=== PATIENT | male | born 1990 | race Caucasian/White ===

== ENCOUNTER 2020-12-13 23:16 | Emergency (ER) | payer SELFPAY ==
[2020-12-13 23:33] VITALS: TEMP 98; BMI 29.1
[2020-12-14 04:17] LABS: EOS % 2.2 % (0-4.5); HEMATOCRIT 44.5 % (35.4-49); HEMOGLOBIN 15.1 GM/dL (11.7-16.9); LYMPH % 47.1 % (8-40); MCH 31.5 pg (25.7-33.7); MEAN CELL VOLUME 92.5 fl (80-96); MEAN PLT VOLUME 7.4 fl (7.5-11.1); MONO % 4.9 % (3.8-10.2); NEUT % 44.8 % (42.8-82.8); PLATELET COUNT 316 K/MM3 (134-434); RBC 4.81 M/mm3 (4.00-5.60); WHITE BLOOD COUNT 6.1 K/mm3 (4.0-10.0)
[2020-12-14 04:31] LABS: POTASSIUM 4.3 mmol/L (3.5-5.1)
[2020-12-14 04:32] LABS: CALCIUM 8.6 mg/dL (8.5-10.1)
[2020-12-14 04:34] LABS: ALBUMIN 3.8 g/dl (3.4-5.0); BLOOD UREA NITROGEN 7.3 mg/dL (7-18)
[2020-12-14 04:36] LABS: CREATININE 0.9 mg/dL (0.55-1.3)
[2020-12-14 04:37] LABS: BILIRUBIN,TOTAL 0.5 mg/dL (0.2-1); TOT PROT 8.2 g/dl (6.4-8.2)
[2020-12-14 07:56] VITALS: BP 121/71; PULSE 93
== END 2020-12-14 07:57 | disposition home or self-care (01) ==
LOC: JER 23:16
DX: F10.10 Alcohol abuse, uncomplicated (principal)
CPT/HCPCS: 36415; 80053; 85025; 99283-25

== ENCOUNTER 2021-04-12 12:05 | Emergency (ER) | payer OTHER ==
[2021-04-12] MEDS ORDERED: DIPHTH,PERTUSS(ACELL),TET 0.5 ML DISP.SYRIN IM ONE ×2 (12:23→13:54)
[2021-04-12 12:30] VITALS: TEMP 97.5; BMI 25.0
[2021-04-12 13:50] LABS: BASO % 1.3 % (0-2.0); EOS % 1.6 % (0-4.5); HEMATOCRIT 42.1 % (35.4-49); HEMOGLOBIN 14.3 GM/dL (11.7-16.9); MCH 33.7 pg (25.7-33.7); MCHC 33.9 g/dl (32.0-35.9); MEAN CELL VOLUME 99.5 fl (80-96); MEAN PLT VOLUME 7.5 fl (7.5-11.1); MONO % 5.1 % (3.8-10.2); PLATELET COUNT 176 10^3/uL (134-434); RBC 4.23 M/mm3 (4.00-5.60); RDW 14.2 % (11.9-15.9); WHITE BLOOD COUNT 4.5 K/mm3 (4.0-10.0)
[2021-04-12 14:22] LABS: CHLORIDE 108 mmol/L (98-107); SODIUM 145 mmol/L (136-145)
[2021-04-12 14:25] LABS: ALBUMIN 3.5 g/dl (3.4-5.0); ANION GAP 10 MMOL/L (8-16); BLOOD UREA NITROGEN 3.7 mg/dL (7-18); CALCIUM 7.8 mg/dL (8.5-10.1); CO2 28 mmol/L (21-32); GLUCOSE,RANDOM 100 mg/dL (74-106)
[2021-04-12 14:28] LABS: CREATININE 0.7 mg/dL (0.55-1.3); SGOT/AST 195 U/L (15-37); SGPT/ALT 94 U/L (13-61)
[2021-04-12 14:30] LABS: TOT PROT 7.8 g/dl (6.4-8.2)
[2021-04-12 14:31] LABS: ALK PHOS 113 U/L (45-117)
[2021-04-12 14:38] LABS: BILIRUBIN,TOTAL 0.5 mg/dL (0.2-1)
[2021-04-12 14:58] LABS: URINE APPEARANCE CLEAR; URINE BILIRUBIN NEGATIVE (NEGATIVE); URINE COLOR YELLOW; URINE GLUCOSE (UA) NEGATIVE (NEGATIVE); URINE KETONE NEGATIVE (NEGATIVE); URINE LEUK ESTERASE NEGATIVE (NEGATIVE); URINE NITRITE NEGATIVE (NEGATIVE); URINE PROTEIN NEGATIVE (NEGATIVE); URINE UROBILINOGEN 0.2 mg/dL (0.2-1.0)
[2021-04-12 15:21] LABS: METHADONE, UR NEGATIVE (NEGATIVE)
[2021-04-12 15:22] LABS: OPIATES, URI NEGATIVE (NEGATIVE); PHENCYCLIDINE,URINE NEGATIVE (NEGATIVE); URINE BARBITURATES NEGATIVE (NEGATIVE)
[2021-04-12 15:23] LABS: COCAINE, UR NEGATIVE (NEGATIVE); URINE BENZODIAZEPINES NEGATIVE (NEGATIVE)
[2021-04-12 15:25] LABS: URINE AMPHETAMINES NEGATIVE (NEGATIVE)
[2021-04-12 15:58] VITALS: BP 116/78; PULSE 80
[2021-04-12] MEDS ORDERED: CEPHALEXIN MONOHYDRATE 500 MG CAPSULE (UD) PO ONE (16:21)
[2021-04-12] MEDS ORDERED: CEPHALEXIN MONOHYDRATE 500 MG CAPSULE (UD) ONE (16:41)
== END 2021-04-12 19:30 | disposition home or self-care (01) ==
LOC: JER 12:05
PROC: 3E0234Z Introduction of Serum, Toxoid and Vaccine into Muscle, Percutaneous Approach (ICD-10-PCS; principal; 2021-04-12)
DX: F10.10 Alcohol abuse, uncomplicated (principal); R45.851 Suicidal ideations; S02.2XXA Fracture of nasal bones, initial encounter for closed fracture
CPT/HCPCS: 36415; 70450-TC; 70486-TC; 71045-TC-FY; 72125-TC; 80053; 80307; 81003; 82550; 82553; 84443; 84484; 85025; 90471; 90715; 93005; 93010; 99285-25

== ENCOUNTER 2021-04-12 20:45 | Inpatient (IN) | payer OTHER ==
[2021-04-12 11:50] VITALS: BMI 24.3
[2021-04-12] MEDS ORDERED: MAGNESIUM CITRATE 300 ML BOTTLE PO PRN (21:32)
[2021-04-12] MEDS ORDERED: MENTHOL/PHENOL 1 EACH UD MM PRN (21:32)
[2021-04-12] MEDS ORDERED: BISMUTH SUBSALICYLATE 524 MG/30 ML PO PRN (21:32)
[2021-04-12] MEDS ORDERED: MAGNESIUM HYDROX 2400MG/30ML ORAL SUSPENSION 30 ML CUP PO PRN (21:32)
[2021-04-12] MEDS ORDERED: ACETAMINOPHEN 325 MG TABLET (FP) PO PRN ×2 (21:32)
[2021-04-12] MEDS ORDERED: MAG HYDROX/AL HYDROX/SIMETH 30 ML UNIT-DOSE CUP PO PRN (21:32)
[2021-04-12] MEDS ORDERED: ONDANSETRON *ODT* 4 MG TABLET SL PRN (21:32)
[2021-04-12] MEDS ORDERED: IBUPROFEN 400 MG TABLET (FP) PO PRN (21:32)
[2021-04-12] MEDS ORDERED: CEPHALEXIN MONOHYDRATE 500 MG CAPSULE (UD) PO SCH (22:00)
[2021-04-13] MEDS: diazePAM 5 MG TABLET PO SCH ×5 (00:24→22:13)
[2021-04-13] MEDS: THIAMINE HCL 100 MG TABLET (FP) PO SCH ×2 (00:41→22:13)
[2021-04-13] MEDS: MELATONIN 5 MG TABLETS PO SCH ×2 (00:41→22:13)
[2021-04-13] MEDS: METHOCARBAMOL 500 MG TABLET PO PRN ×2 (05:44→22:13)
[2021-04-13] MEDS ORDERED: CEPHALEXIN MONOHYDRATE 500 MG CAPSULE (UD) PO ONE (09:30)
[2021-04-13] MEDS: diazePAM 5 MG TABLET PO PRN ×2 (09:41→14:54)
[2021-04-13] MEDS: PRENATAL VITAMINS W/ FOLIC ACID TABLET (FP) PO SCH (09:44)
[2021-04-13] MEDS: CEPHALEXIN MONOHYDRATE 500 MG CAPSULE (UD) PO SCH ×2 (14:54→22:13)
[2021-04-14] MEDS: CEPHALEXIN MONOHYDRATE 500 MG CAPSULE (UD) PO SCH ×3 (05:22→22:17)
[2021-04-14] MEDS: diazePAM 5 MG TABLET PO SCH ×3 (05:22→22:17)
[2021-04-14] MEDS: diazePAM 5 MG TABLET PO PRN (08:23)
[2021-04-14] MEDS: LACTULOSE 20 GM/30 ML UDC (FOR ORAL USE ONLY) PO SCH ×4 (10:03→22:17)
[2021-04-14] MEDS: PRENATAL VITAMINS W/ FOLIC ACID TABLET (FP) PO SCH (10:03)
[2021-04-14] MEDS: BACITRACIN 0.9 GM PACKET TP SCH ×2 (10:04→22:16)
[2021-04-14] MEDS ORDERED: COVID-19 VAC,AD26(JANSSEN)/PF 0.5 ML IM ONE (11:00)
[2021-04-14 13:39] LABS: INR 0.97 (0.83-1.09)
[2021-04-14 13:46] LABS: HEMATOCRIT 42.4 % (35.4-49); HEMOGLOBIN 14.3 GM/dL (11.7-16.9); MCH 33.4 pg (25.7-33.7); MCHC 33.6 g/dl (32.0-35.9); MEAN CELL VOLUME 99.3 fl (80-96); MEAN PLT VOLUME 8.9 fl (7.5-11.1); PLATELET COUNT 151 10^3/uL (134-434); RBC 4.27 M/mm3 (4.00-5.60); WHITE BLOOD COUNT 5.4 K/mm3 (4.0-10.0)
[2021-04-14 13:56] LABS: ALBUMIN 3.6 g/dl (3.4-5.0); BLOOD UREA NITROGEN 5.8 mg/dL (7-18)
[2021-04-14 13:58] LABS: CREATININE 0.7 mg/dL (0.55-1.3)
[2021-04-14 13:59] LABS: TOT PROT 7.4 g/dl (6.4-8.2)
[2021-04-14 14:02] LABS: BILIRUBIN,TOTAL 1.8 mg/dL (0.2-1)
[2021-04-14 14:10] LABS: CALCIUM 9.1 mg/dL (8.5-10.1)
[2021-04-14] MEDS: THIAMINE HCL 100 MG TABLET (FP) PO SCH (22:17)
[2021-04-14] MEDS: MELATONIN 5 MG TABLETS PO SCH (22:17)
[2021-04-15] MEDS: CEPHALEXIN MONOHYDRATE 500 MG CAPSULE (UD) PO SCH (05:23)
[2021-04-15] MEDS ORDERED: diazePAM 5 MG TABLET PO SCH (06:00)
[2021-04-15 09:02] VITALS: BP 116/75; PULSE 118; TEMP 96.9
[2021-04-15] MEDS: PRENATAL VITAMINS W/ FOLIC ACID TABLET (FP) PO SCH (09:55)
[2021-04-15] MEDS: BACITRACIN 0.9 GM PACKET TP SCH (09:55)
[2021-04-15] MEDS: LACTULOSE 20 GM/30 ML UDC (FOR ORAL USE ONLY) PO SCH (09:55)
[2021-04-16] MEDS ORDERED: diazePAM 5 MG TABLET PO ONE (06:00)
== END 2021-04-15 09:16 | disposition left against medical advice (07) | DRG 770 ==
LOC: YASAS 20:45 → Y3N 22:30
PROVIDERS: ADMIT Allergy & Immunology; ATTEND Allergy & Immunology
PROC: HZ2ZZZZ Detoxification Services for Substance Abuse Treatment (ICD-10-PCS; principal; 2021-04-12)
DX: F10.230 Alcohol dependence with withdrawal, uncomplicated (principal); F10.220 Alcohol dependence with intoxication, uncomplicated; F10.24 Alcohol dependence with alcohol-induced mood disorder; R79.89 Other specified abnormal findings of blood chemistry; S02.2XXD Fracture of nasal bones, subsequent encounter for fracture with routine healing; S01.81XD Laceration without foreign body of other part of head, subsequent encounter; W19.XXXD Unspecified fall, subsequent encounter
CPT/HCPCS: 0031A; 36415; 80053; 82140; 85027; 85610; 91303; C9803; U0003; U0005